=== PATIENT | female | born 2000 | race Hispanic/Latino ===

== ENCOUNTER 2023-02-13 11:39 | Inpatient (IN) | payer MEDICAID, OTHER, SELFPAY ==
[2023-02-13] MEDS ORDERED: Ibuprofen 800 MG TAB PO PRN (12:43)
[2023-02-13] MEDS ORDERED: Carboprost 250 MCG/ML AMP IM PRN (12:43)
[2023-02-13] MEDS ORDERED: HYDROcodone/Acetaminophen 5/325 mg Tablet PO PRN ×2 (12:43→14:41)
[2023-02-13] MEDS ORDERED: Methylergonovine 0.2 MG/ML VIAL IM PRN (12:43)
[2023-02-13] MEDS ORDERED: Lidocaine 1% (PF) 30 ML VIAL SC PRN (12:43)
[2023-02-13] MEDS ORDERED: Promethazine HCl 25 MG/ML VIAL IM PRN ×2 (12:43→14:41)
[2023-02-13] MEDS ORDERED: Acetaminophen 500 MG TAB PO PRN (12:43)
[2023-02-13] MEDS ORDERED: Misoprostol 200 MCG TAB PR PRN (12:43)
[2023-02-13] MEDS ORDERED: hydrALAZINE 20 MG/ML VIAL SLOW IVP PRN ×2 (12:43→14:41)
[2023-02-13] MEDS ORDERED: fentaNYL 50 mcg/mL 1 mL Vial SLOW IVP PRN (12:43)
[2023-02-13] MEDS ORDERED: Diphenoxylate HCl/Atropine Tablet PO PRN (12:43)
[2023-02-13] MEDS ORDERED: Tranexamic Acid 1,000 MG/10 ML VIAL IVP PRN (12:43)
[2023-02-13] MEDS ORDERED: Ondansetron PF 4 MG/2 ML Vial IVP PRN ×2 (12:43→14:41)
[2023-02-13] MEDS ORDERED: Lactated Ringer's 1,000 ML IV SCH (12:45)
[2023-02-13] MEDS ORDERED: Oxytocin 30 units/NS 500 ML 500 ML IV SCH ×2 (12:45)
[2023-02-13] MEDS: Oxytocin 30 units/NS 500 ML 500 ML IV SCH ×2 (13:07→14:10)
[2023-02-13 13:22] LABS: Hematocrit 37.6 % (34.9-44.5); Hemoglobin 11.8 g/dL (12.0-15.5); Mean Corpuscular HGB CONC 31.4 g/dL (32.0-36.0); Mean Corpuscular Volume 76.4 fl (81.6-98.3); Platelet Count 131 10x3/uL (150-450); RBC Distribution Width 17.6 % (11.5-14.5); Red Blood Cell (RBC) Count 4.92 10x6/uL (3.90-5.03); White Blood Cell (WBC) Count 8.9 10x3/uL (3.5-10.5)
[2023-02-13 13:45] LABS: HBSAg Index 0.15 S/CO (0-0.99); Hep B Surf Ag - L&D Non-Reactive S/CO (NonReactive)
[2023-02-13 13:46] VITALS: BMI 33.6
[2023-02-13 13:46] LABS: Syphilis Antibody Nonreactive (Nonreactive); Syphilis Antibody Index 0.03 S/CO (<1.00 Non-Reactive)
[2023-02-13] MEDS ORDERED: Milk Of Magnesia 30 ML UDCUP PO PRN (14:41)
[2023-02-13] MEDS ORDERED: Boostrix 0.5 ML (Tdap) VIAL (>/=7 yrs of age) IM ONE (14:41)
[2023-02-13] MEDS ORDERED: Bisacodyl 10 MG SUPP PR PRN (14:41)
[2023-02-13] MEDS ORDERED: diphenhydrAMINE 25 MG CAP PO PRN (14:41)
[2023-02-13] MEDS ORDERED: Lanolin Ointment 7 GM TUBE TOP PRN (14:41)
[2023-02-13] MEDS ORDERED: Preparation H Ointment 28 GM TUBE PR PRN (14:41)
[2023-02-13] MEDS ORDERED: Benzocaine-Menthol 82.5 ML CAN TOP PRN (14:41)
[2023-02-13] MEDS: Ferrous Sulfate 325 MG TAB PO SCH (19:08)
[2023-02-13] MEDS: Docusate 100 MG CAP PO SCH (20:02)
[2023-02-13] MEDS: Ibuprofen 800 MG TAB PO SCH (21:45)
[2023-02-14] MEDS ORDERED: Prenatal Vitamin 1 TAB PO SCH (09:00)
[2023-02-14 11:51] VITALS: BP 107/57; TEMP 98.5
[2023-02-14] MEDS: Ibuprofen 800 MG TAB PO SCH (12:51)
[2023-02-14] MEDS: Docusate 100 MG CAP PO SCH (12:52)
[2023-02-14] MEDS: Ferrous Sulfate 325 MG TAB PO SCH (12:52)
== END 2023-02-14 17:10 | disposition home or self-care (01) | DRG 807 ==
LOC: CSHLD/OP 11:39 → CSHLD 12:16 → CSHPED 14:48
PROVIDERS: ADMIT Family Medicine; ATTEND Family Medicine
PROC: 10E0XZZ Delivery of Products of Conception, External Approach (ICD-10-PCS; principal; 2023-02-13)
PROC: 0KQM0ZZ Repair Perineum Muscle, Open Approach (ICD-10-PCS; 2023-02-13)
PROC: 3E033VJ Introduction of Other Hormone into Peripheral Vein, Percutaneous Approach (ICD-10-PCS; 2023-02-13)
DX: O42.02 Full-term premature rupture of membranes, onset of labor within 24 hours of rupture (principal); Z37.0 Single live birth; O70.1 Second degree perineal laceration during delivery; Z3A.39 39 weeks gestation of pregnancy; O69.81X0 Labor and delivery complicated by cord around neck, without compression, not applicable or unspecified
CPT/HCPCS: 51702; 85027; 86780; 86850; 86900; 86901; 87340; 99285; J2590